=== PATIENT | male | born 1970 | race Caucasian/White ===

== ENCOUNTER → 2017-06-16 | Outpatient (CLI) | payer OTHER ==
[2013-10-02 09:11] VITALS: BMI 26.0
[~2017-06-16] MED LIST: CELE50CA2 PO; CLIN300C99 PO; CYCL10TA29 PO; DICL25TA9 PO; HYDR1TAB PO; KET10 PO; LOR5/325 PO; OXYC-827 PO; OXYC-865 PO; OXYC10TA19 PO; OXYC10TA67 PO; TRAZ-156 PO
--- NOTE | 2017-06-16 16:27 | RADIOLOGY IMAGING REPORT ---
FACILITY: [facility] PATIENT NAME: Luis Carver : 1970 MR: [id number] V: [id number] EXAM DATE: ORDERING PHYSICIAN: ELIAN YOUNG TECHNOLOGIST: Location: [facility] Patient: Luis Cavrer : 1970 Visit/Account:[id number] Date of Sevice: 06/16/2017 SHOULDER RIGHT W/O CONTRAST HISTORY: Shoulder pain TECHNIQUE: CT images were obtained through the right shoulder without intravenous contrast. 2D coron al and sagittal images obtained from the initial data. One of the following dose optimization techniq ues was utilized in the performance of this exam: automated exposure control; adjustment of the mA an d/or kv according to patient size; or use of iterative reconstruction technique. Specific details can be referenced in the facility's radiology CT exam operational policy. CONTRAST: None COMPARISON: X-ray 08/11/2015 FINDINGS: Glenohumeral joint: No acute fracture or dislocation. Right shoulder hemiarthroplasty with the jose l component in good alignment without significant surrounding lucency. Glenoid has several screws as well as subchondral lucencies which may be from prior labral/Bankart repair. AC joint: Probable postoperative changes at the undersurface of the acromium. Mild spurring at the AC joint. Screw-plate fixation of the distal clavicle with healed fracture. Soft tissues: Normal Other findings: None significant IMPRESSION: 1. Right shoulder hemiarthroplasty without evidence of complication. Old postoperative changes at the glenoid which may be from prior Bankart/labral repair. Report Dictated By: Hiram Torrez MD at 06/16/2017 3:59 PM Report E-Signed By: Hiram Torrez MD at 06/16/2017 4:24 PM [id number]
== END ==
LOC: CT 07:08
PROVIDERS: ATTEND Orthopaedic Surgery
DX: Z96.611 Presence of right artificial shoulder joint (principal)